=== PATIENT | male | born 1995 | race Caucasian/White ===

== ENCOUNTER 2017-06-27 16:34 | Observation (INO) | payer SELFPAY ==
[~2017-06-27] VITALS: Ht 190.5 cm; Wt 150.3 kg
[~2017-06-27 16:34] MED LIST: ALBUTEROL SULF8.5 GM IH; ATHENOL325 MG PO; CLEOCIN150 MG PO; CLINDAMYCIN HC300 MG PO; FLEXERIL10 MG PO; LORTAB 5-325 M1 EACH PO; NAPROSYN500 MG PO; NOHOMEMEDS; OMEPRAZOLE40 M1 PO; PERCOCET 5/31 TABLET PO; PREDNISONE10 MG PO; PROAIR RESPICL90 MCG IH; ULTRAM50 MG PO
[2017-06-27 16:47] LABS: HEMATOCRIT 45.4 % (38.0-50.0); HEMOGLOBIN 15.1 G/DL (12.5-16.6); MCH 30.1 PG (29.0-34.0); MCHC 33.3 G/DL (30.0-36.0); MCV 90.6 FL (86-99); PLATELET COUNT 375 K/uL (156-360); RBC DIS.WIDTH-CV 12.1 % (11.8-14.6); RED BLOOD COUNT 5.01 M/uL (4.00-5.50); WHITE BLOOD COUNT 21.4 K/uL (4.1-10.2)
[2017-06-27 17:00] LABS: TOTAL PROTEIN 7.2 g/dL (6.4-8.3)
[2017-06-27 17:02] LABS: TOTAL BILIRUBIN 0.4 mg/dL (0.0-1.0)
[2017-06-27 17:03] LABS: APPEARANCE SL.HAZY ((CLEAR)); BILIRUBIN NEGATIVE; BLOOD NEGATIVE; COLOR YELLOW ((YELLOW)); GLUCOSE (STRIP) >=500; KETONES NEGATIVE; LEUKOCYTES NEGATIVE; NITRITE NEGATIVE; PROTEIN (STRIP) >=500; SPECIFIC GRAVITY 1.014 (1.000-1.030); UROBILINOGEN 0.2 MG/DL (0.2-1.0)
[2017-06-27 17:03] LABS: ALKALINE PHOSPHATASE 98 IU/L (3-129); SERUM ETHYL ALCOHOL < 10 mg/dL
[2017-06-27 17:06] LABS: AST (GOT) 32 IU/L (2-34); DIRECT BILIRUBIN 0.2 mg/dL (0.0-0.3); SALICYLATE < 5.0 MG/DL (15-30)
[2017-06-27 17:07] LABS: ACETAMINOPHEN (TYLENOL) < 10 mcg/mL (10-30); ALT (GPT) 67 IU/L (3-49)
[2017-06-27 17:16] LABS: BACTERIA RARE /HPF; CALCIUM OXALATE CRYSTALS 1+ /HPF; EPITHELIAL CELLS RARE /HPF; HYALINE CASTS 20-30 /LPF; MUCUS TRACE /LPF
[2017-06-27 17:17] LABS: AMPHETAMINE NEGATIVE (500 ng/mL); BARBITURATES NEGATIVE (200 ng/mL); BENZODIAZEPINES NEGATIVE (150 ng/mL); BUPRENORPHINE NEGATIVE (10 ng/mL); COCAINE NEGATIVE (150 ng/mL); METHADONE NEGATIVE (200 ng/mL); METHAMPHETAMINE NEGATIVE (500 ng/mL); OPIATES (MORPHINE) PRESUMPTIVE POSITIVE (100 ng/mL); OXYCODONE NEGATIVE (100 ng/mL); PHENCYCLIDINE NEGATIVE (25 ng/mL); PROPOXYPHENE NEGATIVE (300 ng/mL); THC CANNABINOIDS NEGATIVE (50 ng/mL); TRICYCLIC ANTIDEPRESSANTS NEGATIVE (300 ng/mL)
[2017-06-27 19:29] LABS: BASOPHIL (%) 0.1 % (0-1); EOSINOPHIL (%) 0.1 % (0-5); HEMATOCRIT 41.8 % (38.0-50.0); HEMOGLOBIN 14.4 G/DL (12.5-16.6); LYMPHOCYTE (%) 6.1 % (15-42); LYMPHOCYTE COUNT 1.3 K/uL (1.0-2.8); MCH 30.1 PG (29.0-34.0); MCHC 34.4 G/DL (30.0-36.0); MCV 87.4 FL (86-99); MONOCYTE COUNT 1.5 K/uL (0-0.8); NEUTROPHIL (%) 85.7 % (45-76); NEUTROPHIL COUNT 17.6 K/uL (1.8-6.4); RBC DIS.WIDTH-SD 39.1 % (39-53); RED BLOOD COUNT 4.78 M/uL (4.00-5.50); WHITE BLOOD COUNT 20.6 K/uL (4.1-10.2)
[2017-06-27 19:40] LABS: CHLORIDE 108 mEq/L (99-109); POTASSIUM 4.5 mEq/L (3.7-5.4); SODIUM 138 mEq/L (136-147)
[2017-06-27 19:41] LABS: GLUCOSE 105 mg/dL (70-99)
[2017-06-27 19:45] LABS: CREATININE 1.2 mg/dL (0.6-1.3); GFR ESTIMATE (CALCULATED) > 59 mL/min/ (58.99-99999)
[2017-06-27 19:46] LABS: UREA NITROGEN (BUN) 17 mg/dL (9-23)
[2017-06-27 20:07] LABS: HEMATOLOGY COMMENT 1 SN; PLAT.SUFFICIENCY ADEQUATE
[2017-06-27 20:10] LABS: PLATELET COUNT 256 K/uL (156-360)
[2017-06-27 22:40] VITALS: BP 125/69
[2017-06-28 04:38] VITALS: BP 124/56
[2017-06-28 06:08] LABS: HEMATOCRIT 38.1 % (38.0-50.0); HEMOGLOBIN 12.6 G/DL (12.5-16.6); MCH 29.3 PG (29.0-34.0); MCHC 33.1 G/DL (30.0-36.0); MCV 88.6 FL (86-99); PLATELET COUNT 258 K/uL (156-360); RBC DIS.WIDTH-CV 12.3 % (11.8-14.6); RBC DIS.WIDTH-SD 40.2 % (39-53); WHITE BLOOD COUNT 12.6 K/uL (4.1-10.2)
[2017-06-28 08:23] VITALS: BP 132/65
[2017-06-28 10:29] LABS: ALBUMIN 3.4 G/DL (3.2-4.8); CHLORIDE 105 MEQ/L (99-109); POTASSIUM 3.8 MEQ/L (3.7-5.4); SODIUM 139 MEQ/L (136-147); TOTAL BILIRUBIN 0.5 MG/DL (0.0-1.0)
[2017-06-28 10:35] LABS: ALKALINE PHOSPHATASE 73 IU/L (3-129); ALT (GPT) 50 IU/L (3-49); AST (GOT) 28 IU/L (2-34); CREATININE 1.2 MG/DL (0.6-1.3); GFR ESTIMATE (CALCULATED) > 59 mL/min/ (58.99-99999); GLUCOSE 110 mg/dL (70-99); TOTAL PROTEIN 5.4 G/DL (6.4-8.3); UREA NITROGEN (BUN) 17 mg/dL (9-23)
[2017-06-28 11:30] VITALS: BP 146/76
== END 2017-06-28 15:02 | disposition home or self-care (01) ==
LOC: EME 16:34 → EDOF 19:44 → 5WEST 19:44 → EDOF 19:44 → ENRESERV 19:51 → 5WEST 22:15
PROVIDERS: Emergency Medicine; Hospitalist; Internal Medicine
DX: T40.1X1A Poisoning by heroin, accidental (unintentional), initial encounter (principal); R09.2 Respiratory arrest; R09.02 Hypoxemia; E87.2 Acidosis; R23.0 Cyanosis; D72.829 Elevated white blood cell count, unspecified; F11.20 Opioid dependence, uncomplicated; F17.200 Nicotine dependence, unspecified, uncomplicated; M79.672 Pain in left foot; R73.9 Hyperglycemia, unspecified
CPT/HCPCS: 70450; 71045; 73630; 80047; 80048; 80053; 80076; 81003; 82140; 82948; 83605; 84999; 85025; 85027; 87040; 87641; 93005; 99281; 99285; G0378; G0480; J2310; J2405; J7030

== ENCOUNTER 2017-07-07 01:57 | Emergency (ER) | payer SELFPAY ==
[~2017-07-07] VITALS: Ht 190.5 cm; Wt 155.9 kg
[2017-07-07 03:45] LABS: HEMATOCRIT 37.6 % (38.0-50.0); HEMOGLOBIN 12.7 G/DL (12.5-16.6); MCH 30.1 PG (29.0-34.0); MCHC 33.8 G/DL (30.0-36.0); MCV 89.1 FL (86-99); PLATELET COUNT 221 K/uL (156-360); RBC DIS.WIDTH-CV 12.3 % (11.8-14.6); RBC DIS.WIDTH-SD 39.6 % (39-53); RED BLOOD COUNT 4.22 M/uL (4.00-5.50); WHITE BLOOD COUNT 9.1 K/uL (4.1-10.2)
[2017-07-07 03:55] LABS: ALBUMIN 3.8 g/dL (3.2-4.8)
[2017-07-07 03:56] LABS: CHLORIDE 101 mEq/L (99-109); POTASSIUM 3.6 mEq/L (3.7-5.4); SODIUM 141 mEq/L (136-147)
[2017-07-07 03:58] LABS: GLUCOSE 138 mg/dL (70-99); TOTAL PROTEIN 6.8 g/dL (6.4-8.3)
[2017-07-07 04:00] LABS: TOTAL BILIRUBIN 0.5 mg/dL (0.0-1.0)
[2017-07-07 04:01] LABS: ALKALINE PHOSPHATASE 79 IU/L (3-129)
[2017-07-07 04:02] LABS: CREATININE 1.1 mg/dL (0.6-1.3); GFR ESTIMATE (CALCULATED) > 59 mL/min/ (58.99-99999)
[2017-07-07 04:03] LABS: AST (GOT) 39 IU/L (2-34); UREA NITROGEN (BUN) 16 mg/dL (9-23)
[2017-07-07 04:05] LABS: ALT (GPT) 54 IU/L (3-49)
[2017-07-07] MEDS ORDERED: KEFLEX500 MG PO (04:28)
[2017-07-07 04:35] LABS: C-REACTIVE PROTEIN 13.4 MG/L (0-10)
[2017-07-07 05:01] VITALS: BP 130/74
== END 2017-07-07 05:01 | disposition home or self-care (01) ==
LOC: EME 01:57
PROVIDERS: Physician Assistant
DX: L03.116 Cellulitis of left lower limb (principal); F17.200 Nicotine dependence, unspecified, uncomplicated
CPT/HCPCS: 73630; 80053; 85027; 86140; 99281; 99284

== ENCOUNTER 2017-10-27 19:55 | Emergency (ER) | payer OTHER ==
[~2017-10-27] VITALS: Ht 190.5 cm; Wt 131.8 kg
[~2017-10-27 19:55] MED LIST changes: +KEFLEX500 MG PO
[2017-10-27 20:47] VITALS: BP 108/58
== END 2017-10-27 20:57 | disposition home or self-care (01) ==
LOC: EME 19:55
DX: T40.1X1A Poisoning by heroin, accidental (unintentional), initial encounter (principal); F11.10 Opioid abuse, uncomplicated; Y92.008 Other place in unspecified non-institutional (private) residence as the place of occurrence of the external cause; F17.200 Nicotine dependence, unspecified, uncomplicated
CPT/HCPCS: 99281; 99284

== ENCOUNTER 2017-10-28 23:02 | Inpatient (IN) | payer OTHER ==
[~2017-10-28] VITALS: Ht 190.5 cm; Wt 134.1 kg
[2017-10-29 00:38] LABS: APPEARANCE CLEAR ((CLEAR)); BILIRUBIN NEGATIVE; BLOOD NEGATIVE; COLOR YELLOW ((YELLOW)); GLUCOSE (STRIP) NEGATIVE; KETONES NEGATIVE; LEUKOCYTES NEGATIVE; NITRITE NEGATIVE; PROTEIN (STRIP) NEGATIVE; SPECIFIC GRAVITY 1.028 (1.000-1.030); UCUL ADDED? NO
[2017-10-29 00:46] LABS: AMPHETAMINE NEGATIVE (500 ng/mL); BARBITURATES NEGATIVE (200 ng/mL); BENZODIAZEPINES NEGATIVE (150 ng/mL); BUPRENORPHINE NEGATIVE (10 ng/mL); COCAINE NEGATIVE (150 ng/mL); METHADONE NEGATIVE (200 ng/mL); METHAMPHETAMINE NEGATIVE (500 ng/mL); OPIATES (MORPHINE) NEGATIVE (100 ng/mL); OXYCODONE NEGATIVE (100 ng/mL); PHENCYCLIDINE NEGATIVE (25 ng/mL); PROPOXYPHENE NEGATIVE (300 ng/mL); THC CANNABINOIDS NEGATIVE (50 ng/mL); TRICYCLIC ANTIDEPRESSANTS NEGATIVE (300 ng/mL)
[2017-10-29 01:14] LABS: HEMATOCRIT 36.7 % (38.0-50.0); HEMOGLOBIN 12.2 G/DL (12.5-16.6); MCH 28.6 PG (29.0-34.0); MCHC 33.2 G/DL (30.0-36.0); MCV 85.9 FL (86-99); PLATELET COUNT 248 K/uL (156-360); RBC DIS.WIDTH-CV 13.2 % (11.8-14.6); RBC DIS.WIDTH-SD 40.6 % (39-53); RED BLOOD COUNT 4.27 M/uL (4.00-5.50); WHITE BLOOD COUNT 9.1 K/uL (4.1-10.2)
[2017-10-29 01:26] LABS: CHLORIDE 106 mEq/L (99-109); POTASSIUM 4.2 mEq/L (3.7-5.4); SODIUM 140 mEq/L (136-147)
[2017-10-29 01:28] LABS: GLUCOSE 116 mg/dL (70-99)
[2017-10-29 01:31] LABS: SERUM ETHYL ALCOHOL < 10 mg/dL
[2017-10-29 01:32] LABS: GFR ESTIMATE (CALCULATED) > 59 mL/min/ (58.99-99999)
[2017-10-29 01:33] LABS: UREA NITROGEN (BUN) 20 mg/dL (9-23)
[2017-10-29 08:00] VITALS: BP 137/61
[2017-10-29 16:07] VITALS: BP 100/61
[2017-10-29 21:45] VITALS: BP 111/56
[2017-10-30 07:43] VITALS: BP 105/68
[2017-10-30 14:54] VITALS: BP 141/74
[2017-10-30 15:31] VITALS: BP 131/79
[2017-10-31 07:25] VITALS: BP 108/64
[2017-10-31 14:40] VITALS: BP 114/53
[2017-11-01 08:04] VITALS: BP 104/49
[2017-11-01 16:50] VITALS: BP 107/59
[2017-11-02 08:20] VITALS: BP 107/54
[2017-11-02 16:00] VITALS: BP 133/63
[2017-11-03 08:07] VITALS: BP 113/58
[2017-11-03 15:46] VITALS: BP 130/64
[2017-11-04 07:30] VITALS: BP 121/66
[2017-11-04 16:13] VITALS: BP 119/98
[2017-11-05 07:52] VITALS: BP 116/61
[2017-11-05] MEDS ORDERED: TRAZODONE HCL50 MG PO (09:03)
[2017-11-05] MEDS ORDERED: RANITIDINE15 MG/1 ML PO (09:03)
== END 2017-11-05 12:06 | disposition other institution (70) | DRG 885 ==
LOC: EME 23:02 → 1WEST 10-29 02:18 → EDOF 10-29 02:18 → ENRESERV 10-29 04:00 → 1WEST 10-29 04:46
PROVIDERS: Emergency Medicine
DX: F31.9 Bipolar disorder, unspecified (principal); F11.20 Opioid dependence, uncomplicated; R45.851 Suicidal ideations; J44.9 Chronic obstructive pulmonary disease, unspecified; I10 Essential (primary) hypertension; G43.909 Migraine, unspecified, not intractable, without status migrainosus; F41.9 Anxiety disorder, unspecified; F17.210 Nicotine dependence, cigarettes, uncomplicated; E66.01 Morbid (severe) obesity due to excess calories; G47.00 Insomnia, unspecified; Z86.14 Personal history of Methicillin resistant Staphylococcus aureus infection; Z91.5 Personal history of self-harm; Z68.36 Body mass index [BMI] 36.0-36.9, adult
CPT/HCPCS: 71046; 80048; 80164; 81003; 85027; 90839; 97150 GO; 97165 GO; 99281; 99285; G0480; J0572; J0574; Q0177